=== PATIENT | female | born 1955 | race African-American/Black ===

== ENCOUNTER 2017-07-06 10:57 | Emergency (ER) | payer SELFPAY ==
[~2017-07-06] VITALS: Ht 154.9 cm; Wt 44.5 kg
[2017-07-06 11:06] VITALS: BP_SYST 153
[2017-07-06 12:00] VITALS: BP_SYST 153
== END 2017-07-06 12:00 | disposition home or self-care (01) ==
LOC: SED 10:57
DX: Z76.5 Malingerer [conscious simulation] (principal); G89.29 Other chronic pain; R10.30 Lower abdominal pain, unspecified; M54.5 Low back pain
CPT/HCPCS: 99281

== ENCOUNTER 2017-09-23 17:22 | Inpatient (IN) | payer MEDICAID ==
[~2017-09-23] VITALS: Ht 154.9 cm; Wt 38.1 kg
[2017-09-23 17:22] VITALS: BP_SYST 110
[2017-09-23] MEDS ORDERED: NACL 0.9% 1,000 ML IV ONE (18:15)
[2017-09-23 18:58] LABS: INR 1.1 (0.8-1.2); PROTHROMBIN TIME 10.9 SECS (9.5-12.5)
[2017-09-23] MEDS ORDERED: MORPHINE 2 MG/ML INJ. SYRINGE IVP ONE (19:00)
[2017-09-23] MEDS ORDERED: DIPHENHYDRAMINE INJ 50 MG/ML VIAL IVP ONE (19:00)
[2017-09-23 19:02] LABS: CALCIUM 8.4 mg/dL (8.4-11.0); CREATININE 0.65 mg/dL (0.55-1.30); POTASSIUM 3.8 mmol/L (3.5-5.1)
[2017-09-23 19:19] LABS: ALBUMIN 2.2 g/dL (3.4-4.8); TOTAL BILIRUBIN 0.3 mg/dL (0.0-1.0)
[2017-09-23 19:22] LABS: HEMATOCRIT 23.9 % (36-48); HEMOGLOBIN 7.6 g/dL (12.0-16.0); MEAN CORPUSCULAR HEMOGLOBIN 23 pg (27-31); MEAN CORPUSCULAR HGB CONC 32 % (32-36); MEAN CORPUSCULAR VOLUME 73 fL (79.0-98.0); PLATELET COUNT (AUTO) 772 K/uL (130-430); RED BLOOD CELL COUNT(AUTO) 3.28 MIL/uL (4.2-6.2); WHITE BLOOD COUNT (AUTO) 8.8 K/uL (4.8-10.8)
[2017-09-23 19:23] LABS: BASOPHILS % (AUTO) 0.2 % (0.0-2.0); EOSINOPHILS % (AUTO) 0.1 % (0.0-4.0); LYMPHOCYTES % (AUTO) 8.1 % (20.5-51.5); MONOCYTES % (AUTO) 1.9 % (1.7-9.3); NEUTROPHILS % (AUTO) 89.7 % (40.0-70.0)
[2017-09-23] MEDS ORDERED: ACETAMINOPHEN 325 MG TABLET PO PRN (22:00)
[2017-09-23] MEDS ORDERED: DOCUSATE SODIUM 100 MG CAPSULE PO PRN (22:00)
[2017-09-23] MEDS ORDERED: ONDANSETRON HCL 4 MG/2 ML VIAL IVP PRN (22:00)
[2017-09-23] MEDS ORDERED: LORazepam 2 MG/ML VIAL IVP PRN (22:00)
[2017-09-23] MEDS ORDERED: POTASSIUM CHLORIDE 20 MEQ TAB.PRT.SR PO PRN (22:00)
[2017-09-23] MEDS ORDERED: MAGNESIUM SULFATE 50 ML IV PRN (22:00)
[2017-09-23] MEDS ORDERED: MUPIROCIN 2% TOPICAL OINTMENT 22 GM NS PRN (22:00)
[2017-09-23] MEDS ORDERED: MORPHINE 2 MG/ML INJ. SYRINGE IVP PRN (22:00)
[2017-09-23 22:20] VITALS: BP_SYST 114
[2017-09-23] MEDS: MORPHINE 2 MG/ML INJ. SYRINGE IVP PRN (22:39)
[2017-09-23] MEDS: ZOLPIDEM TARTRATE 5 MG TABLET PO PRN (23:45)
[2017-09-24] MEDS: MORPHINE 2 MG/ML INJ. SYRINGE IVP PRN ×2 (06:11→11:29)
[2017-09-24 06:47] LABS: BASOPHILS % (AUTO) 0.3 % (0.0-2.0); EOSINOPHILS % (AUTO) 0.1 % (0.0-4.0); HEMATOCRIT 22.1 % (36-48); LYMPHOCYTES # (AUTO) 1.2 K/uL (1.0-5.5); LYMPHOCYTES % (AUTO) 13.6 % (20.5-51.5); MEAN CORPUSCULAR HEMOGLOBIN 23 pg (27-31); MEAN CORPUSCULAR HGB CONC 32 % (32-36); MEAN CORPUSCULAR VOLUME 73 fL (79.0-98.0); MONOCYTES # (AUTO) 0.2 K/uL (0.0-1.0); MONOCYTES % (AUTO) 2.3 % (1.7-9.3); NEUTROPHILS # (AUTO) 7.3 K/uL (1.8-7.7); NEUTROPHILS % (AUTO) 83.7 % (40.0-70.0); RED BLOOD CELL COUNT(AUTO) 3.05 MIL/uL (4.2-6.2); RED CELL DISTRIBUTION WIDTH 17.1 % (9.0-15.0); WHITE BLOOD COUNT (AUTO) 8.7 K/uL (4.8-10.8)
[2017-09-24] MEDS ORDERED: DEXTROSE 50% JECT 50 ML DISP.SYRIN IVP PRN (07:00)
[2017-09-24 07:11] LABS: CALCIUM 8.2 mg/dL (8.4-11.0); CREATININE 0.53 mg/dL (0.55-1.30); POTASSIUM 3.8 mmol/L (3.5-5.1)
[2017-09-24 07:47] LABS: PLATELET COUNT (AUTO) 752 K/uL (130-430)
[2017-09-24 08:00] VITALS: BP_SYST 123
[2017-09-24] MEDS: FERROUS SULFATE 325 MG TABLET.DR PO SCH (08:21)
[2017-09-24] MEDS: HYDROcodone/ACETAMIN 10-325 MG TAB PO SCH ×3 (08:22→23:06)
[2017-09-24] MEDS: HEPARIN SODIUM,PORCINE 5000 UNITS/ML VIAL SUBCUT SCH ×2 (08:25→21:31)
[2017-09-24] MEDS: INSULIN ASPART 100 UNITS/ML, 10 ML VIAL (NovoLOG) SUBCUT PRN ×3 (08:34→21:31)
[2017-09-24] MEDS: NACL 0.9% 1,000 ML IV SCH (08:35)
[2017-09-24] MEDS ORDERED: DIATR MEGLU/DIATRIZ SOD 30 ML SOLUTION PO ONE (08:43)
[2017-09-24 11:30] VITALS: BP_SYST 132
[2017-09-24] MEDS ORDERED: HYDROcodone/ACETAMIN 7.5-325 MG TAB PO PRN (14:45)
[2017-09-24] MEDS ORDERED: ACETAMINOPHEN 325 MG TABLET PO ONE (15:00)
[2017-09-24] MEDS ORDERED: DIPHENHYDRAMINE HCL 12.5 MG/5 ML UDC PO ONE (15:00)
[2017-09-24] MEDS ORDERED: HYDROXYUREA 500 MG CAPSULE (HYDREA) PO ONE (15:15)
[2017-09-24] MEDS: MORPHINE SULFATE 10 MG/ML VIAL IVP PRN ×2 (15:20→19:30)
[2017-09-24 16:30] VITALS: BP_SYST 113
[2017-09-24 20:00] VITALS: BP_SYST 134
[2017-09-24] MEDS: ZOLPIDEM TARTRATE 5 MG TABLET PO PRN (21:10)
[2017-09-25 00:20] VITALS: BP_SYST 128
[2017-09-25] MEDS: MORPHINE SULFATE 10 MG/ML VIAL IVP PRN ×2 (02:10→08:03)
[2017-09-25] MEDS: HYDROcodone/ACETAMIN 10-325 MG TAB PO SCH (06:07)
[2017-09-25] MEDS: NACL 0.9% 1,000 ML IV SCH (06:08)
[2017-09-25] MEDS: INSULIN ASPART 100 UNITS/ML, 10 ML VIAL (NovoLOG) SUBCUT PRN (06:15)
[2017-09-25 07:24] LABS: BASOPHILS % (AUTO) 0.2 % (0.0-2.0); EOSINOPHILS % (AUTO) 0.1 % (0.0-4.0); HEMATOCRIT 34.4 % (36-48); HEMOGLOBIN 11.1 g/dL (12.0-16.0); LYMPHOCYTES # (AUTO) 1.1 K/uL (1.0-5.5); LYMPHOCYTES % (AUTO) 9.5 % (20.5-51.5); MEAN CORPUSCULAR HEMOGLOBIN 25 pg (27-31); MEAN CORPUSCULAR HGB CONC 32 % (32-36); MEAN CORPUSCULAR VOLUME 79 fL (79.0-98.0); MONOCYTES # (AUTO) 0.1 K/uL (0.0-1.0); MONOCYTES % (AUTO) 1.1 % (1.7-9.3); NEUTROPHILS # (AUTO) 10.4 K/uL (1.8-7.7); NEUTROPHILS % (AUTO) 89.1 % (40.0-70.0); PLATELET COUNT (AUTO) 637 K/uL (130-430); RED BLOOD CELL COUNT(AUTO) 4.35 MIL/uL (4.2-6.2); RED CELL DISTRIBUTION WIDTH 21.5 % (9.0-15.0); WHITE BLOOD COUNT (AUTO) 11.6 K/uL (4.8-10.8)
[2017-09-25 08:08] LABS: CALCIUM 8.7 mg/dL (8.4-11.0); CREATININE 0.53 mg/dL (0.55-1.30); POTASSIUM 3.9 mmol/L (3.5-5.1)
[2017-09-25] MEDS: FERROUS SULFATE 325 MG TABLET.DR PO SCH (08:08)
[2017-09-25] MEDS: HEPARIN SODIUM,PORCINE 5000 UNITS/ML VIAL SUBCUT SCH (08:09)
[2017-09-25 08:40] VITALS: BP_SYST 136
[2017-09-25] MEDS ORDERED: HYDROXYUREA 500 MG CAPSULE (HYDREA) PO SCH (09:00)
[2017-09-25 09:30] VITALS: BP_SYST 133
[2017-09-25] MEDS ORDERED: HYDR-1189 PO (09:44)
[2017-09-27 16:19] LABS: FERRITIN 170 ng/mL (15-150)
== END 2017-09-25 10:06 | disposition home or self-care (01) | DRG 343 ==
LOC: SED 17:22 → SMU 21:06
PROVIDERS: ADMIT General Practice; ATTEND General Practice
PROC: 30233N1 Transfusion of Nonautologous Red Blood Cells into Peripheral Vein, Percutaneous Approach (ICD-10-PCS; principal; 2017-09-24)
DX: C79.51 Secondary malignant neoplasm of bone (principal); E43 Unspecified severe protein-calorie malnutrition; C78.00 Secondary malignant neoplasm of unspecified lung; C77.9 Secondary and unspecified malignant neoplasm of lymph node, unspecified; F11.20 Opioid dependence, uncomplicated; E87.1 Hypo-osmolality and hyponatremia; C78.6 Secondary malignant neoplasm of retroperitoneum and peritoneum; D47.3 Essential (hemorrhagic) thrombocythemia; C20 Malignant neoplasm of rectum; R74.0 Nonspecific elevation of levels of transaminase and lactic acid dehydrogenase [LDH]; D50.9 Iron deficiency anemia, unspecified; E11.9 Type 2 diabetes mellitus without complications; F17.210 Nicotine dependence, cigarettes, uncomplicated; G89.29 Other chronic pain; Z68.1 Body mass index [BMI] 19.9 or less, adult; Z92.21 Personal history of antineoplastic chemotherapy; Z71.6 Tobacco abuse counseling; Z80.9 Family history of malignant neoplasm, unspecified
CPT/HCPCS: 36415; 71045; 74018; 80048; 80053; 82140-TC; 82378; 82607; 82728; 82962; 83036; 83540-TC; 83605; 83735-TC; 83880; 84439; 84484; 85025; 85610-TC; 86886; 86900; 86901; 86920; 87040-TC; 87081; 93005; 96374; 96375; 99285; J1200; J1644; J1815; J2060; J2270; J7030; J7040; P9021; Q9964

== ENCOUNTER 2017-11-23 11:24 | Inpatient (IN) | payer MEDICAID ==
[~2017-11-23] VITALS: Ht 154.9 cm; Wt 44.5 kg
[~2017-11-23 11:24] MED LIST: HYDR-1189 PO
[2017-11-23 11:34] VITALS: BP_SYST 159
[2017-11-23] MEDS ORDERED: NACL 0.9% 1,000 ML IV ONE ×2 (11:45→14:00)
[2017-11-23] MEDS ORDERED: ONDANSETRON HCL 4 MG/2 ML VIAL IVP ONE (11:45)
[2017-11-23] MEDS ORDERED: MORPHINE 4 MG/ML INJ. SYRINGE IVP ONE ×2 (12:15→13:00)
[2017-11-23 12:42] LABS: HEMATOCRIT 30.6 % (36-48); HEMOGLOBIN 9.3 g/dL (12.0-16.0); MEAN CORPUSCULAR HEMOGLOBIN 25 pg (27-31); MEAN CORPUSCULAR HGB CONC 30 % (32-36); MEAN CORPUSCULAR VOLUME 82 fL (79.0-98.0); PLATELET COUNT (AUTO) 388 K/uL (130-430); RED BLOOD CELL COUNT(AUTO) 3.73 MIL/uL (4.2-6.2); RED CELL DISTRIBUTION WIDTH 21.5 % (9.0-15.0); WHITE BLOOD COUNT (AUTO) 6.1 K/uL (4.8-10.8)
[2017-11-23 12:47] LABS: CALCIUM 7.7 mg/dL (8.4-11.0); CREATININE 0.51 mg/dL (0.55-1.30); POTASSIUM 3.4 mmol/L (3.5-5.1)
[2017-11-23 12:52] LABS: ALBUMIN 2.4 g/dL (3.4-4.8); TOTAL BILIRUBIN 0.5 mg/dL (0.0-1.0)
[2017-11-23] MEDS ORDERED: LACTULOSE 20 GM/30 ML UDC PO ONE (13:00)
[2017-11-23] MEDS ORDERED: LORazepam 2 MG/ML VIAL (FOR ER USE) IVP ONE (13:15)
[2017-11-23 13:39] LABS: BAND % (MANUAL) 13 % (0-6); BASOPHILS % (MANUAL) 0 % (0-2); EOSINOPHILS % (MANUAL) 0 % (0-7); LYMPHOCYTES % (MANUAL) 13 % (20-46); MONOCYTES % (MANUAL) 4 % (0-11)
[2017-11-23] MEDS ORDERED: fentaNYL CITRATE/PF 100 MCG/2 ML AMP IVP ONE (14:30)
[2017-11-23] MEDS ORDERED: MUPIROCIN 2% TOPICAL OINTMENT 22 GM NS PRN (15:15)
[2017-11-23] MEDS ORDERED: ZOLPIDEM TARTRATE 5 MG TABLET PO PRN (15:15)
[2017-11-23] MEDS ORDERED: MAGNESIUM SULFATE 50 ML IV PRN (15:15)
[2017-11-23] MEDS ORDERED: ACETAMINOPHEN 325 MG TABLET PO PRN (15:15)
[2017-11-23] MEDS ORDERED: MINERAL OIL 133 ML ENEMA RC ONE (15:15)
[2017-11-23] MEDS ORDERED: POTASSIUM CHLORIDE 20 MEQ TAB.PRT.SR PO PRN (15:15)
[2017-11-23] MEDS ORDERED: DOCUSATE SODIUM 100 MG CAPSULE PO PRN (15:15)
[2017-11-23] MEDS ORDERED: LORazepam 2 MG/ML VIAL IVP PRN (15:15)
[2017-11-23] MEDS ORDERED: SENN-153 PO (15:41)
[2017-11-23] MEDS ORDERED: FERR-57 PO (15:41)
[2017-11-23] MEDS ORDERED: LACT10SO66 PO (15:41)
[2017-11-23] MEDS ORDERED: POLY17PO4 PO (15:41)
[2017-11-23] MEDS ORDERED: OXYC10TA71 PO (15:41)
[2017-11-23] MEDS ORDERED: ONDA4TAB5 PO (15:41)
[2017-11-23 15:49] VITALS: BP_SYST 145
[2017-11-23 17:05] VITALS: BP_SYST 175
[2017-11-23] MEDS: D5NS 1,000 ML IV SCH (17:11)
[2017-11-23 19:50] VITALS: BP_SYST 175
[2017-11-23] MEDS: MORPHINE 2 MG/ML INJ. SYRINGE IVP PRN (19:50)
[2017-11-23] MEDS: METOPROLOL TARTRATE 50 MG TABLET PO SCH (22:16)
[2017-11-23] MEDS: LUBIPROSTONE 24 MCG CAPSULE PO SCH (22:16)
[2017-11-23] MEDS: HEPARIN SODIUM,PORCINE 5000 UNITS/ML VIAL SUBCUT SCH ×2 (22:17→22:38)
[2017-11-24] MEDS: MORPHINE 2 MG/ML INJ. SYRINGE IVP PRN ×6 (00:35→20:17)
[2017-11-24 01:29] VITALS: BP_SYST 166
[2017-11-24 07:19] LABS: HEMATOCRIT 38.2 % (36-48); MEAN CORPUSCULAR HEMOGLOBIN 26 pg (27-31); MEAN CORPUSCULAR HGB CONC 32 % (32-36); MEAN CORPUSCULAR VOLUME 82 fL (79.0-98.0); PLATELET COUNT (AUTO) 503 K/uL (130-430); RED BLOOD CELL COUNT(AUTO) 4.69 MIL/uL (4.2-6.2); RED CELL DISTRIBUTION WIDTH 22.6 % (9.0-15.0); WHITE BLOOD COUNT (AUTO) 7.3 K/uL (4.8-10.8)
[2017-11-24 07:29] LABS: CALCIUM 7.7 mg/dL (8.4-11.0); CREATININE 0.51 mg/dL (0.55-1.30); POTASSIUM 3.6 mmol/L (3.5-5.1)
[2017-11-24] MEDS: D5NS 1,000 ML IV SCH (07:57)
[2017-11-24 08:10] VITALS: BP_SYST 180
[2017-11-24] MEDS: LUBIPROSTONE 24 MCG CAPSULE PO SCH ×2 (08:36→20:15)
[2017-11-24] MEDS: METOPROLOL TARTRATE 50 MG TABLET PO SCH ×2 (08:37→20:15)
[2017-11-24] MEDS: LISINOPRIL 10 MG TABLET (PRINIVIL) PO SCH ×2 (08:37→08:50)
[2017-11-24] MEDS: POLYETHYLENE GLYCOL 3350, 17 GM/ POWD.PACK PO SCH (08:38)
[2017-11-24] MEDS: HEPARIN SODIUM,PORCINE 5000 UNITS/ML VIAL SUBCUT SCH ×2 (08:49→20:18)
[2017-11-24 08:51] LABS: BASOPHILS % (MANUAL) 0 % (0-2)
[2017-11-24 09:03] LABS: EOSINOPHILS % (MANUAL) 0 % (0-7); LYMPHOCYTES % (MANUAL) 9 % (20-46); MONOCYTES % (MANUAL) 6 % (0-11)
[2017-11-24 09:04] LABS: BAND % (MANUAL) 13 % (0-6)
[2017-11-24 09:12] LABS: HEPATITIS B CORE AB, TOTAL Negative (Negative); HEPATITIS B SURFACE AG Negative (Negative); HEPATITIS C VIRUS AB <0.1 s/co ratio (0.0-0.9)
[2017-11-24] MEDS: ONDANSETRON HCL 4 MG/2 ML VIAL IVP PRN ×2 (12:30→18:13)
[2017-11-24 12:31] VITALS: BP_SYST 144
[2017-11-24] MEDS ORDERED: GASTROGRAFIN 120 ML ONE (14:10)
[2017-11-24 17:00] VITALS: BP_SYST 163
[2017-11-24 19:40] VITALS: BP_SYST 144
[2017-11-24] MEDS ORDERED: VANCOMYCIN HCL 1 GM/NS PREMIX 250 ML IV ONE (23:15)
[2017-11-25] MEDS: MORPHINE 2 MG/ML INJ. SYRINGE IVP PRN ×5 (00:08→17:45)
[2017-11-25] MEDS ORDERED: VANCOMYCIN HCL 1000 MG/VIAL IV ONE (00:30)
[2017-11-25 02:32] VITALS: BP_SYST 146
[2017-11-25 04:56] VITALS: BP_SYST 159
[2017-11-25] MEDS: D5NS 1,000 ML IV SCH ×2 (05:00→09:54)
[2017-11-25 07:38] LABS: HEMATOCRIT 36.7 % (36-48); HEMOGLOBIN 11.5 g/dL (12.0-16.0); MEAN CORPUSCULAR HEMOGLOBIN 26 pg (27-31); MEAN CORPUSCULAR HGB CONC 31 % (32-36); MEAN CORPUSCULAR VOLUME 82 fL (79.0-98.0); PLATELET COUNT (AUTO) 434 K/uL (130-430); RED CELL DISTRIBUTION WIDTH 22.3 % (9.0-15.0); WHITE BLOOD COUNT (AUTO) 8.6 K/uL (4.8-10.8)
[2017-11-25 07:56] LABS: CALCIUM 7.5 mg/dL (8.4-11.0); CREATININE 0.42 mg/dL (0.55-1.30); POTASSIUM 3.1 mmol/L (3.5-5.1)
[2017-11-25 08:00] VITALS: BP_SYST 147
[2017-11-25] MEDS: LUBIPROSTONE 24 MCG CAPSULE PO SCH ×2 (09:46→21:00)
[2017-11-25] MEDS: MORPHINE SULFATE 30 MG TABLET.SA PO SCH ×2 (09:46→21:00)
[2017-11-25] MEDS: METOPROLOL TARTRATE 50 MG TABLET PO SCH ×2 (09:47→21:00)
[2017-11-25] MEDS: POLYETHYLENE GLYCOL 3350, 17 GM/ POWD.PACK PO SCH (09:47)
[2017-11-25] MEDS: HEPARIN SODIUM,PORCINE 5000 UNITS/ML VIAL SUBCUT SCH ×2 (09:49→21:23)
[2017-11-25] MEDS: LISINOPRIL 10 MG TABLET (PRINIVIL) PO SCH ×2 (09:57→21:00)
[2017-11-25 10:48] LABS: BAND % (MANUAL) 9 % (0-6); BASOPHILS % (MANUAL) 0 % (0-2); EOSINOPHILS % (MANUAL) 0 % (0-7); LYMPHOCYTES % (MANUAL) 5 % (20-46); MONOCYTES % (MANUAL) 10 % (0-11)
[2017-11-25] MEDS: ONDANSETRON HCL 4 MG/2 ML VIAL IVP PRN (12:24)
[2017-11-25 12:40] VITALS: BP_SYST 156
[2017-11-25 17:03] VITALS: BP_SYST 124
[2017-11-25 20:04] VITALS: BP_SYST 132
[2017-11-25] MEDS ORDERED: VANCOMYCIN HCL 750 MG in NS 250 ML IV SCH (23:00)
[2017-11-26] MEDS: D5NS 1,000 ML IV SCH (01:01)
[2017-11-26 01:11] VITALS: BP_SYST 135
[2017-11-26 07:51] LABS: CALCIUM 7.5 mg/dL (8.4-11.0); CREATININE 0.34 mg/dL (0.55-1.30)
[2017-11-26 08:03] VITALS: BP_SYST 127
[2017-11-26 08:14] LABS: HEMATOCRIT 34.8 % (36-48); HEMOGLOBIN 10.6 g/dL (12.0-16.0); LYMPHOCYTES % (AUTO) 16.2 % (20.5-51.5); MEAN CORPUSCULAR HEMOGLOBIN 25 pg (27-31); MEAN CORPUSCULAR HGB CONC 31 % (32-36); MEAN CORPUSCULAR VOLUME 82 fL (79.0-98.0); MONOCYTES # (AUTO) 0.6 K/uL (0.0-1.0); MONOCYTES % (AUTO) 10.3 % (1.7-9.3); NEUTROPHILS # (AUTO) 4.5 K/uL (1.8-7.7); PLATELET COUNT (AUTO) 367 K/uL (130-430); RED BLOOD CELL COUNT(AUTO) 4.26 MIL/uL (4.2-6.2); RED CELL DISTRIBUTION WIDTH 21.9 % (9.0-15.0); WHITE BLOOD COUNT (AUTO) 6.1 K/uL (4.8-10.8)
[2017-11-26] MEDS: POLYETHYLENE GLYCOL 3350, 17 GM/ POWD.PACK PO SCH (08:14)
[2017-11-26] MEDS: LUBIPROSTONE 24 MCG CAPSULE PO SCH (08:14)
[2017-11-26 08:20] LABS: NEUTROPHILS % (AUTO) 73.5 % (40.0-70.0)
[2017-11-26] MEDS: MORPHINE SULFATE 30 MG TABLET.SA PO SCH (08:23)
[2017-11-26] MEDS: HEPARIN SODIUM,PORCINE 5000 UNITS/ML VIAL SUBCUT SCH (08:24)
[2017-11-26] MEDS: METOPROLOL TARTRATE 50 MG TABLET PO SCH (08:32)
[2017-11-26] MEDS: LISINOPRIL 10 MG TABLET (PRINIVIL) PO SCH (08:32)
[2017-11-26 09:14] LABS: POTASSIUM 2.5 mmol/L (3.5-5.1)
[2017-11-26] MEDS ORDERED: LUBI24CA5 PO (09:48)
[2017-11-26] MEDS ORDERED: LISI10TA5 PO (09:48)
[2017-11-26] MEDS ORDERED: MORP-93 PO (09:48)
[2017-11-26] MEDS ORDERED: METO-442 PO (09:52)
[2017-11-26] MEDS ORDERED: POTA-118 PO (09:52)
[2017-11-26] MEDS ORDERED: LACT10SO66 PO (09:56)
[2017-11-26] MEDS ORDERED: DOCU-144 PO (09:56)
[2017-11-26] MEDS ORDERED: MAGN400O4 PO (09:56)
[2017-11-26] MEDS: MORPHINE 2 MG/ML INJ. SYRINGE IVP PRN (10:00)
[2017-11-26 10:32] VITALS: BP_SYST 124
[2017-11-26 12:55] VITALS: BP_SYST 124
[2017-11-26] MEDS ORDERED: POTASSIUM CHLORIDE 20 MEQ TAB.PRT.SR PO ONE (13:45)
== END 2017-11-26 15:00 | disposition home or self-care (01) | DRG 247 ==
LOC: SED 11:24 → SMU 14:02
PROVIDERS: ADMIT General Practice; ATTEND General Practice
DX: K56.41 Fecal impaction (principal); E43 Unspecified severe protein-calorie malnutrition; C78.00 Secondary malignant neoplasm of unspecified lung; C18.9 Malignant neoplasm of colon, unspecified; D63.8 Anemia in other chronic diseases classified elsewhere; I10 Essential (primary) hypertension; R74.0 Nonspecific elevation of levels of transaminase and lactic acid dehydrogenase [LDH]; G89.4 Chronic pain syndrome; E87.1 Hypo-osmolality and hyponatremia; E87.6 Hypokalemia; F17.210 Nicotine dependence, cigarettes, uncomplicated; Z68.1 Body mass index [BMI] 19.9 or less, adult; Z92.21 Personal history of antineoplastic chemotherapy
CPT/HCPCS: 36415; 71045; 74021; 74250-TC; 80048; 80053; 83605; 83735-TC; 85007; 85025; 85027; 86704; 86706; 86803; 87040-TC; 87340; 96361; 96374; 96375; 96376; 97110-GP; 99291; J1644; J2060; J2270; J2274; J2405; J3010; J3370; J7030; J7042; J7050; Q9963